=== PATIENT | female | born 1965 ===

== ENCOUNTER 2020-07-30 13:16 | Outpatient (REF) | payer SELFPAY ==
[2020-08-03 17:32] LABS: SARS-CoV-2 RNA Undetected (Undetected); SARS-CoV-2 Specimen Source Nasal
== END 2020-07-30 13:36 ==
LOC: NCHCN 13:16
PROVIDERS: Visit Provider Nurse Practitioner Family
DX: Z20.828 Contact with and (suspected) exposure to other viral communicable diseases (principal)
CPT/HCPCS: U0003